=== PATIENT | female | born 1950 | race Caucasian/White ===

== ENCOUNTER 2017-06-24 20:10 | Emergency (ER) | payer MEDICARE, BC ==
[~2017-06-24 20:10] MED LIST: ABIL5TAB6 PO; ALPR1TAB3 PO; APIX5TAB PO; CYAN100025 SL; FENT1DIS35 T-DERMAL; FOLI5CAP PO; MECL-62 PO; MELO7.5; TEMA30CA PO
[2017-06-24 20:11] VITALS: BP 148/70; PULSE 72; RESP 16; TEMP 98.6; O2SAT 99
[2017-06-24] MEDS ORDERED: CYMB60CA PO (23:37)
[2017-06-24] MEDS ORDERED: ABIL10TA8 PO (23:37)
[2017-06-24] MEDS ORDERED: MECL-62 PO (23:37)
[2017-06-24] MEDS ORDERED: TEMA30CA PO (23:38)
[2017-06-24] MEDS ORDERED: FOLI400T PO (23:38)
[2017-06-24] MEDS ORDERED: OXYC15TA PO (23:39)
[2017-06-24] MEDS ORDERED: GABA300C5 PO (23:39)
[2017-06-24] MEDS ORDERED: MOBI7.5T PO (23:39)
[2017-06-24] MEDS ORDERED: COUM3TAB PO (23:39)
[2017-06-24] MEDS ORDERED: METO25TA3 PO (23:39)
[2017-06-24] MEDS ORDERED: SODIUM CHLORIDE 0.9% FLUSH 10 ML FLUSH IVF PRN (23:45)
--- NOTE | 2017-06-24 23:55 | PD ---
HPI Chief Complaint: General Weakness Time Seen by Provider: 23:28 Travel History International Travel<30 days: No Contact w/Intl Traveler<30days: No Traveled to known affect area: No History of Present Illness HPI 66-year-old female presents with note of difficulty ambulating since she fell on Wednesday. She fell out of the chair when she fell asleep. She hit her head but did not lose consciousness. She states she has pain to the area she hit her head into her neck. She states she has chronic neck pain and has a plate in her neck. She states that she gets around with a cane typically and has been doing but it's been getting harder. She denies any other concurrent complaints. Family member help supplement history some as patient is a poor historian. PFSH Past Medical History Arthritis: Yes Blood Disorders: No Anxiety: Yes Depression: Yes Cancer: No Cardiovascular Problems: Yes (A-FIB/CAD/CONGENITAL DEFECT) High Cholesterol: Yes Congestive Heart Failure: No Diabetes: No Endocrine: No Gastrointestinal Disorders: Yes (GERD RESOLVED) GERD: Yes Genitourinary: No Hepatitis: No Hiatal Hernia: No Hypertension: Yes Immune Disorder: No Implanted Vascular Access Dvce: Yes Musculoskeletal: Yes (ARTHRITIS, NECK HARDWARE) Neurologic: No Psychiatric: Yes (BI-POLAR/ANXIETY/DEPRESSION) Reproductive: No Respiratory: No Thyroid Disease: No ?: Not Menopausal: Yes Past Surgical History Body Medical Devices: LEFT ARM HARDWARE, CERVICAL HARDWARE Cardiac Surgery: Yes (ATRIAL HOLE REPAIR (1970)) Joint Replacement: Yes (JORDIN. HIPS) Neurologic Surgery: Yes (CERVICAL FUSION X 2) Pacemaker: No Other Surgery: Yes Social History Alcohol Use: Yes (occ) Tobacco Use: No Substance Use: No Allergies-Medications (Allergen,Severity, Reaction): Coded Allergies: diltiazem (Unverified Allergy, Unknown, 06/24/17) morphine (Unverified Allergy, Unknown, 06/24/17) diphenhydramine (Unverified Adverse Reaction, Severe, hyperactivity, 06/24) Reported Meds & Prescriptions Reported Meds & Active Scripts Active Reported Mobic (Meloxicam) 7.5 Mg Tab 7.5 Mg PO DAILY Metoprolol Tartrate 25 Mg Tab 25 Mg PO BID Gabapentin 300 Mg Cap 300 Mg PO BID Oxycodone (Oxycodone HCl) 15 Mg Tab 15 Mg PO Q4H PRN Coumadin (Warfarin) 3 Mg Tab 3 Mg PO DAILY Folic Acid 0.4 Mg Tab Unknown Dose PO DAILY Temazepam 30 Mg Cap 30 Mg PO HS PRN Meclizine (Meclizine HCl) 25 Mg Tab 25 Mg PO BID PRN Abilify (Aripiprazole) 10 Mg Tab 5 Mg PO DAILY Cymbalta DR (Duloxetine HCl) 60 Mg Capdr 60 Mg PO DAILY Alprazolam 1 Mg Tab 1 Mg PO Q8H PRN Review of Systems ROS Limitations: Poor Historian Physical Exam Exam Limitations: Poor Historian Narrative GENERAL: Well-nourished, well-developed patient. SKIN: Warm and dry. HEAD: Normocephalic and atraumatic. EYES: No injection or drainage. ENT: No nasal drainage noted. NECK: Supple, trachea midline. pain with ROM diffusely CARDIOVASCULAR: Regular rate and rhythm RESPIRATORY: no increased effort. No accessory muscle use. GASTROINTESTINAL: Abdomen soft, non-tender, nondistended. EXTREMITIES: No edema. BACK: Nontender without obvious deformity in midline. NEUROLOGICAL: Awake and alert. Mild generalized weakness of 4 out of 5 and sensory grossly within normal limits. Normal speech. Data Data Last Documented VS Vital Signs Date Time Temp Pulse Resp B/P (MAP) Pulse Ox O2 Delivery O2 Flow Rate FiO2 06/24/17 20:11 98.6 72 16 148/70 (96) 99 Room Air Orders Orders Basic Metabolic Panel (Bmp) (06/24/17 23:35) Complete Blood Count With Diff (06/24/17 23:35) Prothrombin Time / Inr (Pt) (06/24/17 23:35) Act Partial Throm Time (Ptt) (06/24/17 23:35) Urinalysis - C+S If Indicated (06/24/17 23:35) Chest, Single Ap (06/24/17 23:35) Ct Brain W/O Iv Contrast(Rout) (06/24/17 23:35) Ct Cerv Spine W/O Contrast (06/24/17 23:35) Iv Access Insert/Monitor (06/24/17 23:35) Ecg Monitoring (06/24/17 23:35) Oximetry (06/24/17 23:35) Sodium Chloride 0.9% Flush (Ns Flush) (06/24/17 23:45) Sodium Chlorid 0.9% 500 Ml Inj (Ns 500 M (06/25/17 01:00) Cath For Specimen (06/25/17 01:54) Ed Discharge Order (06/25/17 02:59) Labs Laboratory Tests Test 06/24/17 23:45 06/25/17 02:20 White Blood Count 6.1 TH/MM3 Red Blood Count 4.26 MIL/MM3 Hemoglobin 13.2 GM/DL Hematocrit 38.8 % Mean Corpuscular Volume 91.1 FL Mean Corpuscular Hemoglobin 30.9 PG Mean Corpuscular Hemoglobin Concent 33.9 % Red Cell Distribution Width 14.4 % Platelet Count 149 TH/MM3 Mean Platelet Volume 7.8 FL Neutrophils (%) (Auto) 49.8 % Lymphocytes (%) (Auto) 37.8 % Monocytes (%) (Auto) 9.8 % Eosinophils (%) (Auto) 1.9 % Basophils (%) (Auto) 0.7 % Neutrophils # (Auto) 3.0 TH/MM3 Lymphocytes # (Auto) 2.3 TH/MM3 Monocytes # (Auto) 0.6 TH/MM3 Eosinophils # (Auto) 0.1 TH/MM3 Basophils # (Auto) 0.0 TH/MM3 CBC Comment DIFF FINAL Differential Comment Prothrombin Time 10.3 SEC Prothromb Time International Ratio 1.0 RATIO Activated Partial Thromboplast Time 27.9 SEC Blood Urea Nitrogen 12 MG/DL Creatinine 0.79 MG/DL Random Glucose 84 MG/DL Calcium Level 9.2 MG/DL Sodium Level 133 MEQ/L Potassium Level 4.7 MEQ/L Chloride Level 100 MEQ/L Carbon Dioxide Level 25.9 MEQ/L Anion Gap 7 MEQ/L Estimat Glomerular Filtration Rate 73 ML/MIN Urine Color LIGHT-YELLOW Urine Turbidity CLEAR Urine pH 5.5 Urine Specific Wever 1.002 Urine Protein NEG mg/dL Urine Glucose (UA) NEG mg/dL Urine Ketones NEG mg/dL Urine Occult Blood NEG Urine Nitrite NEG Urine Bilirubin NEG Urine Urobilinogen LESS THAN 2.0 MG/DL Urine Leukocyte Esterase NEG Urine Squamous Epithelial Cells <1 /hpf Microscopic Urinalysis Comment CULT NOT INDICATED MDM Medical Decision Making Medical Screen Exam Complete: Yes Emergency Medical Condition: Yes Medical Record Reviewed: Yes (pmh confirmed) Interpretation(s) CBC & BMP Diagram 06/24/17 23:[address] imaging no acute traumatic findings ua no acute Differential Diagnosis uti, ich, fracture, electrolyte abnormality... Narrative Course will check labs, ua, imaging and reeval ED workup without emergent process, patient ambulated to bathroom with one person assist, at bedside, Patient denies any new complaints and states that they are feeling better. Patient happy with care, all questions answered. Patient knows that follow up is incumbent on them and to return to the emergency room immediately if new or worsening symptoms develop. Patient given strict return precautions, vitals reviewed and are normal, agrees to further workup as an outpatient and wanting to go home. Diagnosis Primary Impression: Fall Qualified Codes: W19.XXXA - Unspecified fall, initial encounter Patient Instructions: General Instructions Additional Instructions: return as needed, follow with primary this week, tylenol as needed Med/Other Pt SpecificInfo: No Change to Meds Disposition: 01 DISCHARGE HOME Condition: Stable Gunjan Mariano MD Jun 24, 2017 23:55
--- NOTE | 2017-06-25 00:02 | RADRPT ---
EXAM DATE/TIME: 06/24/2017 23:51 [facility] COMPARISON: No previous studies available for comparison. INDICATIONS : Pt fell out of chair one week ago. Unable to ambulate MEDICAL HISTORY : Hypertension. Gastroesophageal reflux disease. Hypercholesterolemia. A-fib SURGICAL HISTORY : Atrial hole repair, Left shoulder ENCOUNTER: Initial ACUITY: 1 week PAIN SCORE: 8/10 LOCATION: Bilateral chest FINDINGS: Portable AP view of the chest demonstrates a normal-sized cardiac silhouette. Patient is rotated and underinflated with atelectasis at the lung bases. No effusion, consolidation, or pneumothorax is iden tified. There is fullness to the left suprahilar region. Bones and soft tissues demonstrate no acute finding. There has been prior left shoulder arthroplasty. CONCLUSION: 1. Fullness of the left suprahilar region of uncertain chronicity. I currently do not have access to the patient's prior study from January 2012. Consider followup to confirm stability with good inspirator y formal PA and lateral views of the chest. 2. Otherwise, no acute finding is identified. Robby Shelton MD on June 24, 2017 at 23:59 Board Certified Radiologist. This report was verified electronically.
--- NOTE | 2017-06-25 00:24 | RADRPT ---
EXAM DATE/TIME: 06/24/2017 23:56 [facility] COMPARISON: No previous studies available for comparison. INDICATIONS : Trauma, fall. Unable to ambulate. RADIATION DOSE: 56.35 CTDIvol (mGy) MEDICAL HISTORY : None SURGICAL HISTORY : None. ENCOUNTER: Initial ACUITY: 1 week PAIN SCALE: 5/10 LOCATION: cranial TECHNIQUE: Multiple contiguous axial images were obtained of the head. Using automated exposure control and adj ustment of the mA and/or kV according to patient size, radiation dose was kept as low as reasonably a chievable to obtain optimal diagnostic quality images. DICOM format image data is available electro nically for review and comparison. FINDINGS: CEREBRUM: There is cerebral atrophy. Ventricles are normal. Mild periventricular white matter low-attenuation i s present and there is encephalomalacia in the right parietal region. No evidence of midline shift, mass lesion, hemorrhage or acute infarction. No extra-axial fluid collections are seen. POSTERIOR FOSSA: The cerebellum and brainstem demonstrate no acute finding. The 4th ventricle is midline. The cerebe llopontine angle is unremarkable. EXTRACRANIAL: Visualized sinuses are clear. SKULL: The calvaria is intact. No evidence of skull fracture. CONCLUSION: No acute intracranial abnormality is identified. There are chronic changes, as above. Robby Shelton MD on June 25, 2017 at 0:19 Board Certified Radiologist. This report was verified electronically.
--- NOTE | 2017-06-25 00:27 | RADRPT ---
EXAM DATE/TIME: 06/24/2017 23:57 [facility] COMPARISON: No previous studies available for comparison. INDICATIONS : Trauma, fall. Unable to ambulate. RADIATION DOSE: 25.64 CTDIvol (mGy) MEDICAL HISTORY : None SURGICAL HISTORY : Fusion, cervical. ENCOUNTER: Initial ACUITY: 1 week PAIN SCALE: 8/10 LOCATION: neck TECHNIQUE: Volumetric scanning of the cervical spine was performed. Multiplanar reconstructions in the sagittal, coronal and oblique axial planes were performed. Using automated exposure control and adjustment o f the mA and/or kV according to patient size, radiation dose was kept as low as reasonably achievable to obtain optimal diagnostic quality images. DICOM format image data is available electronically f or review and comparison. FINDINGS: There is osseous fusion between the C4-C6 levels. Anterior cervical plates are present at C3-C4 and C 6-C7. There are no findings to indicate hardware failure or loosening. Degenerative disc disease is p resent at C2-C3, C3-C4, and C6-C7 with endplate osteophytes. No anterolisthesis or retrolisthesis is present. The atlantoaxial relationship is within normal limits. There is no prevertebral soft tissue swelling present. No fracture or dislocation is identified. The visualized portions of the posterior fossa, paraspinous soft tissues, and upper lung zones demons trate no acute abnormality. The patient's necklace causes artifact. CONCLUSION: Prior cervical spine surgery and multilevel degenerative disc disease, as above. No acute cervical sp ine abnormality is identified. Robby Shelton MD on June 25, 2017 at 0:22 Board Certified Radiologist. This report was verified electronically.
[2017-06-25 00:48] LABS: BASOPHIL % 0.7 % (0.0-2.0); EOSINOPHIL # 0.1 TH/MM3 (0-0.4); EOSINOPHIL % 1.9 % (0.0-4.0); HEMATOCRIT 38.8 % (35.0-46.0); HEMO FLAGS DIFF FINAL; LYMPH % 37.8 % (9.0-44.0); LYMPHOCYTE # 2.3 TH/MM3 (1.0-4.8); MEAN CELL VOLUME 91.1 FL (80.0-100.0); MEAN CORPUSCULAR HEMOGLOBIN 30.9 PG (27.0-34.0); MEAN CORPUSCULAR HGB CONC 33.9 % (32.0-36.0); MONO % 9.8 % (0.0-8.0); NEUT % 49.8 % (16.0-70.0); PLATELET COUNT 149 TH/MM3 (150-450); RED BLOOD COUNT 4.26 MIL/MM3 (4.00-5.30); RED CELL DISTRIBUTION WIDTH 14.4 % (11.6-17.2); WHITE BLOOD COUNT 6.1 TH/MM3 (4.0-11.0)
[2017-06-25 00:56] LABS: APTT (PATIENT) 27.9 SEC (24.3-30.1); PROTHROMBIN TIME - PATIENT 10.3 SEC (9.8-11.6)
[2017-06-25] MEDS ORDERED: SODIUM CHLORID 0.9% 500 ML INJ 500 ML IV ONE (01:00)
[2017-06-25 01:05] LABS: BICARBONATE 25.9 MEQ/L (21.0-32.0); POTASSIUM 4.7 MEQ/L (3.5-5.1)
[2017-06-25 02:38] LABS: BLOOD, URINE NEG (NEG); GLUCOSE,URINE NEG (NEG); KETONE, URINE NEG (NEG); NITRITE,URINE NEG (NEG); PH, URINE 5.5 (5.0-8.5); SQUAMOUS EPITHELIAL CELL URINE <1 /hpf (0-5); URINE COLOR LIGHT-YELLOW (YELLW/STRAW)
[2017-06-25 02:42] LABS: COMMENT (UR) CULT NOT INDICATED; CULTURE IF INDICATED CULT NOT INDICATED
== END 2017-06-25 03:27 | disposition home or self-care (01) ==
LOC: NEPE 20:10
DX: R26.2 Difficulty in walking, not elsewhere classified (principal); R51 Headache; M54.2 Cervicalgia; I10 Essential (primary) hypertension; E78.00 Pure hypercholesterolemia, unspecified; Z87.39 Personal history of other diseases of the musculoskeletal system and connective tissue; Z86.59 Personal history of other mental and behavioral disorders; Z86.79 Personal history of other diseases of the circulatory system; W07.XXXA Fall from chair, initial encounter
CPT/HCPCS: 70450; 71010; 72125; 80048; 81001; 85025; 85610; 85730; 99285; J7040

== ENCOUNTER → 2017-10-11 | Outpatient (CLI) | payer MEDICARE, BC ==
[~2017-10-11] MED LIST changes: +ABIL10TA8 PO; +ABIL5TAB14 PO; -ABIL5TAB6 PO; +ALPR.5 PO; +COUM3TAB PO; -CYAN100025 SL; +CYMB60CA PO; -FENT1DIS35 T-DERMAL; +FOLI1TAB6 PO; +FOLI400T PO; -FOLI5CAP PO; +GABA300C5 PO; -MELO7.5; +METO25TA3 PO; +MOBI7.5T PO; +OMEP20TA93 PO; +OXYC15TA PO; +PONASOL EACH NARE
[2017-10-11 11:04] LABS: AUTOMATED NEUTROPHIL # 2.3 TH/MM3 (1.8-7.7); BASOPHIL % 0.7 % (0.0-2.0); EOSINOPHIL # 0.1 TH/MM3 (0-0.4); EOSINOPHIL % 2.9 % (0.0-4.0); HEMATOCRIT 39.1 % (35.0-46.0); HEMOGLOBIN 13.2 GM/DL (11.6-15.3); LYMPHOCYTE # 1.9 TH/MM3 (1.0-4.8); MEAN CELL VOLUME 87.1 FL (80.0-100.0); MEAN CORPUSCULAR HEMOGLOBIN 29.4 PG (27.0-34.0); MEAN CORPUSCULAR HGB CONC 33.7 % (32.0-36.0); MEAN PLATELET VOLUME 7.8 FL (7.0-11.0); MONO % 10.1 % (0.0-8.0); MONOCYTE # 0.5 TH/MM3 (0-0.9); NEUT % 47.3 % (16.0-70.0); PLATELET COUNT 119 TH/MM3 (150-450); RED BLOOD COUNT 4.49 MIL/MM3 (4.00-5.30); RED CELL DISTRIBUTION WIDTH 14.7 % (11.6-17.2); WHITE BLOOD COUNT 4.9 TH/MM3 (4.0-11.0)
[2017-10-11 11:05] LABS: BILIRUBIN, URINE NEG (NEG); BLOOD, URINE NEG (NEG); GLUCOSE,URINE NEG (NEG); KETONE, URINE NEG (NEG); NITRITE,URINE NEG (NEG); PH, URINE 5.5 (5.0-8.5); SQUAMOUS EPITHELIAL CELL URINE 1 /hpf (0-5); URINE COLOR LIGHT-YELLOW (YELLW/STRAW); URINE LEUKOCYTE ESTERASE NEG (NEG)
[2017-10-11 11:21] LABS: INTERNATIONAL NORMALIZED RATIO 1.1 RATIO; PROTHROMBIN TIME - PATIENT 10.7 SEC (9.8-11.6)
--- NOTE | 2017-10-11 12:05 | RADRPT ---
EXAM DATE/TIME: 10/11/2017 11:36 [facility] COMPARISON: CHEST SINGLE AP, June 24, 2017, 23:51. INDICATIONS : Evaluate for communicable diseases, pneumonia, or pneumothorax. MEDICAL HISTORY : Myocardial infarction. SURGICAL HISTORY : None. ENCOUNTER: Initial ACUITY: 1 day PAIN SCORE: 0/10 LOCATION: Bilateral chest FINDINGS: The heart is normal in size. There is mild blunting of the costophrenic sulcus on the right suggestin g minimal right basilar effusion. There are COPD changes. The visualized bony structures demonstrate previous left shoulder arthroplasty but are otherwise inta ct. There are degenerative changes in the thoracic spine. CONCLUSION: 1. COPD changes. 2. Minimal blunting of the costophrenic sulcus on the right possibly representing minimal effusion ve rsus scarring Richie Sparks MD on October 11, 2017 at 12:02 Board Certified Radiologist. This report was verified electronically.
[2017-10-11 12:09] LABS: BICARBONATE 28.6 MEQ/L (21.0-32.0); CALCIUM 9.1 MG/DL (8.5-10.1); CREATININE 0.78 MG/DL (0.50-1.00)
--- NOTE | 2017-10-18 12:51 | MH ---
cc: Ancelmo Mcfarlane MD DATE OF ADMISSION: 10/11/2017 She is scheduled to be admitted to be admitted to the hospital on 10/27/2017. ADMITTING DIAGNOSIS: Osteoarthritis of the right knee; chondromalacia, patella, right knee; effusion, right knee; pain, right knee; gait disturbance. HISTORY OF PRESENT ILLNESS: The patient is a 67-year-old white female who has experienced pain of her right knee of greater than 2 years' duration. She associated the onset of her symptoms following peripheral vascular surgery completed at the [facility] in [place] within the past 2 years and at that time was noting pain about both knees, for which she was seen by the undersigned physician in May 2016. At that time, her x-ray studies were without evidence of any acute bony abnormality. The patient was diagnosed as having transient synovitis, for which she declined an offer for an intraarticular steroid injection, as well as indicating she was unable to take antiinflammatory medication being on Eliquis as part of her cardiology management. She was prescribed Voltaren gel and followed on an outpatient basis thereafter. She remains symptomatic with pain about the knee area and subsequently underwent an MRI scan, the results of which identified osteoarthritic findings with severe lateral compartment chondromalacia and moderate focal central patellar chondromalacia. There was medial compartment chondromalacia. All of the above associated with a moderate sized joint effusion and degenerative changes involving the posterior horn of the lateral meniscus. The patient was continuing to note soreness about her right knee, although she had remained ambulatory during this interval of time. At that time, the patient was treated with an intraarticular steroid injection and thereafter continued to be monitored on an outpatient basis. Unfortunately, her symptoms persisted and she returned to the office in August of this year reporting ongoing pain that was becoming significantly more symptomatic and interfering with all ambulatory activities. The injection that she had previously received, unfortunately, did not provide her with any appreciable benefit. She was requiring use of a cane as a full-time ambulatory aid and describing considerable difficulty conforming to all weightbearing activities, which was beginning to influence her daily routine. She was having additional difficulties with simple tasks such as getting in and out of her automobile and was trying to conform to exercise activities under her own supervision indicating a degree of reluctance to undergo any current course of therapy intervention having been through such treatment in the past. At that time, she expressed her desire to proceed with a more definitive course of treatment that would afford her a more favorable long-term benefit. The involvement of total knee arthroplasty was outlined in detail with emphasis being made that the decision to proceed with surgery would be left entirely to the patient's discretion. She once again declined the offer for physical therapy referral indicating her preference to proceed with surgery as discussed. She underwent both medical and cardiac clearances and upon completion of same, returned to the office for further disposition requesting that surgery be scheduled. In compliance with her wishes, she is currently being admitted in order that the above be accomplished. PAST MEDICAL HISTORY, HOSPITALIZATIONS AND SURGERIES: Have included bilateral total hip arthroplasties, hemiarthroplasty of the left shoulder for a history of fracture, open heart surgery at 19 years of age for a history of a septal defect, subsequent stent insertion, cervical discectomy and fusion, carotid endarterectomy and medical management for pneumonia and gastrointestinal disorder. MEDICAL ILLNESSES: Include stress urinary incontinence, arthritis, bipolar disorder and sleep apnea, for which the patient utilizes CPAP. CURRENT MEDICATIONS: Cymbalta 60 mg twice daily, Abilify 5 mg daily, meclizine 25 mg twice daily, temazepam 30 mg at bedtime, folic acid daily, oxycodone 15 mg 4 times daily, gabapentin 300 mg twice daily, metoprolol 25 mg twice daily, 5 mg daily, Xanax 50 mg daily. She has taken Mobic 7.5 mg twice daily, a nasal emollient twice daily, omeprazole 20 mg daily, and Eliquis 5 mg daily. ALLERGIES: THE PATIENT INDICATES A DRUG ALLERGY TO BENADRYL, WHICH HAS CAUSED HYPERACTIVITY. SHE SAYS MORPHINE HAS BEEN ASSOCIATED WITH IRRATIONAL BEHAVIOR, BUT OXYCODONE HAS BEEN WELL TOLERATED. REVIEW OF SYSTEMS: She does wear glasses. No headache, seizure, or syncope. Occasional sinus congestion. There has been a history of epistaxis. No bleeding gums or dysphagia. Auditory acuity intact. No tinnitus. Denies cough, shortness of breath, upper respiratory infection and tuberculosis. There is a positive history of pneumonia, status post open heart surgery for congenital septal defect. No angina. Appetite good. Occasional constipation managed by [id number] products. No hepatitis, gallbladder disease, ulcers or hemorrhoids. No urinary tract infection, no kidney stones. Fracture of her left shoulder resulting in hemiarthroplasty, and psychiatric treatment for bipolar disorder. Remaining review of systems is unremarkable and noncontributory. FAMILY HISTORY: 18 years, 66 years of age, in good health. No children. FAMILY HISTORY: Positive for hypertension, diabetes, pancreatic cancer, heart disease, aneurysm and chronic musculoskeletal disorder. 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 She is on disability due to her bipolar disorder and arthritis. She completed a high school education with additional college credits. She admits to a [id number] use of tobacco in the past. Ethanol consumption on an occasional social basis. PHYSICAL EXAMINATION: VITAL SIGNS: Height 5 feet 5 inches, weight 149 pounds. GENERAL: An alert, oriented, and responsive 67-year-old white female who sits quietly upon the examination table with no obvious distress. HEAD, EARS, EYES, NOSE, AND THROAT: Pupils are equally round and reactive to light. Extraocular movements full. Sclerae are clear. External nares clear. External auditory canals clear. Dental intact. Mucous membranes pink and moist. Pharynx clear. NECK: Supple, active mobility without appreciable pain. Carotid pulse palpable bilaterally. Trachea midline. Thyroid without thyroid enlargement. LUNGS: Clear to auscultation and percussion. BACK: Bilateral CVA tenderness. No appreciable discomfort throughout the dorsolumbar spine. HEART: Regular rhythm with no murmur or gallop. ABDOMEN: Soft, mildly tender without rebound or guarding. Bowel sounds are present. PELVIC: Per primary care physician. EXTREMITIES: Right knee, no significant swelling or effusion, no discoloration. Lateral joint line tenderness without palpable deformity. Apprehension and compression sign negative. Limited and guarded mobility at the extreme of flexion without significant crepitation. No collateral ligamentous laxity. Abdias test and drawer sign negative. Pivot shift and Norma sign positive for lateral compartment pain. Straight leg raising unremarkable at 80 degrees. Satisfactory mobility of the right hip with no associated pain. Mild Antalgic gait. NEUROLOGIC: Cranial nerves 2 through 12 grossly intact. IMPRESSION: Osteoarthritis of the right knee; chondromalacia, patella, right knee; effusion, right knee; pain, right knee; gait disturbance. PLAN: Right total knee arthroplasty. The nature of the planned surgical procedure, the potential complications and risks associated, the expectations of surgery, and the consent form were thoroughly reviewed with the patient prior to admission to the hospital. Lyndsay has indicated her full understanding regarding all of the above and given consent to proceed with treatment as outlined. Medical evaluation and clearance for surgery will be completed by her primary care physician, Dr. Fabiola Silva. Cardiology clearance per Dr. Jacobs. Ancelmo Mcfarlane MD NBS/SB , 12:12 PM , 12:50 PM
== END ==
LOC: CPRE 09:12
PROVIDERS: ATTEND Orthopaedic Surgery
DX: Z01.810 Encounter for preprocedural cardiovascular examination (principal); Z01.811 Encounter for preprocedural respiratory examination; Z01.812 Encounter for preprocedural laboratory examination; Z01.818 Encounter for other preprocedural examination; Z79.01 Long term (current) use of anticoagulants; M17.11 Unilateral primary osteoarthritis, right knee
CPT/HCPCS: 36415; 71046; 80048; 81001; 85025; 85610

== ENCOUNTER 2017-10-27 05:35 | Inpatient (IN) | payer MEDICARE, BC ==
--- NOTE | 2017-10-18 12:51 | MH ---
cc: Ancelmo Mcfarlane MD DATE OF ADMISSION: 10/27/2017 She is scheduled to be admitted to be admitted to the hospital on 10/27/2017. ADMITTING DIAGNOSIS: Osteoarthritis of the right knee; chondromalacia, patella, right knee; effusion, right knee; pain, right knee; gait disturbance. HISTORY OF PRESENT ILLNESS: The patient is a 67-year-old white female who has experienced pain of her right knee of greater than 2 years' duration. She associated the onset of her symptoms following peripheral vascular surgery completed at the [facility] in [place] within the past 2 years and at that time was noting pain about both knees, for which she was seen by the undersigned physician in May 2016. At that time, her x-ray studies were without evidence of any acute bony abnormality. The patient was diagnosed as having transient synovitis, for which she declined an offer for an intraarticular steroid injection, as well as indicating she was unable to take antiinflammatory medication being on Eliquis as part of her cardiology management. She was prescribed Voltaren gel and followed on an outpatient basis thereafter. She remains symptomatic with pain about the knee area and subsequently underwent an MRI scan, the results of which identified osteoarthritic findings with severe lateral compartment chondromalacia and moderate focal central patellar chondromalacia. There was medial compartment chondromalacia. All of the above associated with a moderate sized joint effusion and degenerative changes involving the posterior horn of the lateral meniscus. The patient was continuing to note soreness about her right knee, although she had remained ambulatory during this interval of time. At that time, the patient was treated with an intraarticular steroid injection and thereafter continued to be monitored on an outpatient basis. Unfortunately, her symptoms persisted and she returned to the office in August of this year reporting ongoing pain that was becoming significantly more symptomatic and interfering with all ambulatory activities. The injection that she had previously received, unfortunately, did not provide her with any appreciable benefit. She was requiring use of a cane as a full-time ambulatory aid and describing considerable difficulty conforming to all weightbearing activities, which was beginning to influence her daily routine. She was having additional difficulties with simple tasks such as getting in and out of her automobile and was trying to conform to exercise activities under her own supervision indicating a degree of reluctance to undergo any current course of therapy intervention having been through such treatment in the past. At that time, she expressed her desire to proceed with a more definitive course of treatment that would afford her a more favorable long-term benefit. The involvement of total knee arthroplasty was outlined in detail with emphasis being made that the decision to proceed with surgery would be left entirely to the patient's discretion. She once again declined the offer for physical therapy referral indicating her preference to proceed with surgery as discussed. She underwent both medical and cardiac clearances and upon completion of same, returned to the office for further disposition requesting that surgery be scheduled. In compliance with her wishes, she is currently being admitted in order that the above be accomplished. PAST MEDICAL HISTORY, HOSPITALIZATIONS AND SURGERIES: Have included bilateral total hip arthroplasties, hemiarthroplasty of the left shoulder for a history of fracture, open heart surgery at 19 years of age for a history of a septal defect, subsequent stent insertion, cervical discectomy and fusion, carotid endarterectomy and medical management for pneumonia and gastrointestinal disorder. MEDICAL ILLNESSES: Include stress urinary incontinence, arthritis, bipolar disorder and sleep apnea, for which the patient utilizes CPAP. CURRENT MEDICATIONS: Cymbalta 60 mg twice daily, Abilify 5 mg daily, meclizine 25 mg twice daily, temazepam 30 mg at bedtime, folic acid daily, oxycodone 15 mg 4 times daily, gabapentin 300 mg twice daily, metoprolol 25 mg twice daily, 5 mg daily, Xanax 50 mg daily. She has taken Mobic 7.5 mg twice daily, a nasal emollient twice daily, omeprazole 20 mg daily, and Eliquis 5 mg daily. ALLERGIES: THE PATIENT INDICATES A DRUG ALLERGY TO BENADRYL, WHICH HAS CAUSED HYPERACTIVITY. SHE SAYS MORPHINE HAS BEEN ASSOCIATED WITH IRRATIONAL BEHAVIOR, BUT OXYCODONE HAS BEEN WELL TOLERATED. REVIEW OF SYSTEMS: She does wear glasses. No headache, seizure, or syncope. Occasional sinus congestion. There has been a history of epistaxis. No bleeding gums or dysphagia. Auditory acuity intact. No tinnitus. Denies cough, shortness of breath, upper respiratory infection and tuberculosis. There is a positive history of pneumonia, status post open heart surgery for congenital septal defect. No angina. Appetite good. Occasional constipation managed by [id number] products. No hepatitis, gallbladder disease, ulcers or hemorrhoids. No urinary tract infection, no kidney stones. Fracture of her left shoulder resulting in hemiarthroplasty, and psychiatric treatment for bipolar disorder. Remaining review of systems is unremarkable and noncontributory. FAMILY HISTORY: 18 years, 66 years of age, in good health. No children. FAMILY HISTORY: Positive for hypertension, diabetes, pancreatic cancer, heart disease, aneurysm and chronic musculoskeletal disorder. 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 She is on disability due to her bipolar disorder and arthritis. She completed a high school education with additional college credits. She admits to a [id number] use of tobacco in the past. Ethanol consumption on an occasional social basis. PHYSICAL EXAMINATION: VITAL SIGNS: Height 5 feet 5 inches, weight 149 pounds. GENERAL: An alert, oriented, and responsive 67-year-old white female who sits quietly upon the examination table with no obvious distress. HEAD, EARS, EYES, NOSE, AND THROAT: Pupils are equally round and reactive to light. Extraocular movements full. Sclerae are clear. External nares clear. External auditory canals clear. Dental intact. Mucous membranes pink and moist. Pharynx clear. NECK: Supple, active mobility without appreciable pain. Carotid pulse palpable bilaterally. Trachea midline. Thyroid without thyroid enlargement. LUNGS: Clear to auscultation and percussion. BACK: Bilateral CVA tenderness. No appreciable discomfort throughout the dorsolumbar spine. HEART: Regular rhythm with no murmur or gallop. ABDOMEN: Soft, mildly tender without rebound or guarding. Bowel sounds are present. PELVIC: Per primary care physician. EXTREMITIES: Right knee, no significant swelling or effusion, no discoloration. Lateral joint line tenderness without palpable deformity. Apprehension and compression sign negative. Limited and guarded mobility at the extreme of flexion without significant crepitation. No collateral ligamentous laxity. Abdias test and drawer sign negative. Pivot shift and Norma sign positive for lateral compartment pain. Straight leg raising unremarkable at 80 degrees. Satisfactory mobility of the right hip with no associated pain. Mild Antalgic gait. NEUROLOGIC: Cranial nerves 2 through 12 grossly intact. IMPRESSION: Osteoarthritis of the right knee; chondromalacia, patella, right knee; effusion, right knee; pain, right knee; gait disturbance. PLAN: Right total knee arthroplasty. The nature of the planned surgical procedure, the potential complications and risks associated, the expectations of surgery, and the consent form were thoroughly reviewed with the patient prior to admission to the hospital. Lyndsay has indicated her full understanding regarding all of the above and given consent to proceed with treatment as outlined. Medical evaluation and clearance for surgery will be completed by her primary care physician, Dr. Fabiola Silva. Cardiology clearance per Dr. Jacobs. Ancelmo Mcfarlane MD NBS/SB , 12:12 PM , 12:50 PM [email or web address]
[~2017-10-27] VITALS: Ht 165.1 cm; Wt 62.1 kg
[~2017-10-27 05:35] MED LIST changes: -ABIL10TA8 PO; -ALPR1TAB3 PO; -COUM3TAB PO; -FOLI400T PO
[2017-10-27] MEDS ORDERED: ceFAZolin INJ 1,000 MG VIAL ONE (06:11)
[2017-10-27] MEDS ORDERED: CHLORHEXIDINE GLUCONATE 2 % 1 PACK (2 CLOTHS) TOPICAL PRN (06:15)
[2017-10-27] MEDS ORDERED: POVIDONE IODINE 5% (ANTISEPSIS KIT) 4 APPLICATIONS EACH NARE PRN (06:15)
[2017-10-27] MEDS ORDERED: SODIUM CHLORID 0.9% 500 ML IV PRN (06:15)
[2017-10-27] MEDS ORDERED: CEFAZOLIN INJ 2,000 MG in SODIUM CHLORIDE 0.9% INJ 100 ML IV SCH (06:15)
[2017-10-27] MEDS ORDERED: POVIDONE IODINE 7.5% SCRUB 118 ML BOTTLE TOPICAL SCH (06:15)
[2017-10-27] MEDS ORDERED: LACTATED RINGER'S 1000 ML IV PRN (06:15)
[2017-10-27] MEDS ORDERED: METOPROLOL TARTRATE 25 MG TAB PO PRN (06:15)
[2017-10-27] MEDS ORDERED: ACETAMINOPHEN 1000 MG/100 ML 100 ML IV ONE (06:29)
[2017-10-27] MEDS ORDERED: FAMOTIDINE 20 MG/2 ML VIAL ONE (06:31)
[2017-10-27] MEDS ORDERED: FAT EMULSION 20% INJ 0 ML ONE (06:32)
[2017-10-27] MEDS ORDERED: MIDAZOLAM HCL 2 MG/2 ML VIAL ONE (06:33)
[2017-10-27] MEDS ORDERED: MIDAZOLAM HCL 2 MG/2 ML VIAL IV ONE (06:45)
[2017-10-27] MEDS ORDERED: FAMOTIDINE 20 MG/2 ML VIAL IV ONE (06:45)
[2017-10-27] MEDS ORDERED: TRANEXAMIC ACID 1 GM PRIOR TO PROCEDURE IV SCH ×2 (07:00)
[2017-10-27] MEDS ORDERED: HYDROmorphone HCL PF 2 MG/ML VIAL ONE (07:47)
[2017-10-27] MEDS ORDERED: DO NOT ADM ANY ANTICOAGULANT DRUGS PRN (09:16)
[2017-10-27] MEDS ORDERED: TRANEXAMIC ACID INJ 1,000 MG in SODIUM CHLORIDE 0.9% INJ 100 ML IV SCH (09:30)
[2017-10-27] MEDS ORDERED: ACETAMINOPHEN 325 MG TAB PO PRN (09:30)
[2017-10-27] MEDS ORDERED: Post-op Orders (for Pharmacy) XX ONE (09:30)
[2017-10-27] MEDS ORDERED: NALOXONE HCL 0.4 MG/ML AMP IV PUSH PRN (09:30)
[2017-10-27] MEDS ORDERED: ONDANSETRON HCL 4 MG/2 ML VIAL IVP PRN (09:30)
[2017-10-27] MEDS ORDERED: MISCELLANEOUS PHARMACY INFORMATION XX ONE (09:30)
[2017-10-27] MEDS ORDERED: DOCUSATE SODIUM 100 MG CAP PO PRN (09:30)
--- NOTE | 2017-10-27 09:31 | HHI.FF ---
Face to Face Verification Diagnosis: (1) DJD (degenerative joint disease) of knee Physical Therapy Gait training Knee: Total knee, Protocol: Right, Full weight bearing Right LE Weight Bearing: WB as tolerated Right LE Range of Motion: Active ROM Nursing Dressing Changes: Daily dressing change I have seen patient Lnydsay Nguyen on 10/27/17. My clinical findings support the need for the requested home health care services because: Limited ability to care for self High risk of falls I certify that my clinical findings support that this patient is homebound because: Post-op weakness Unsteady gait/balance Unsafe to leave home unassisted Ancelmo Mcfarlane MD Oct 27, 2017 09:31
[2017-10-27] MEDS ORDERED: *LABETALOL HCL 100 MG/20 ML VIAL PERIprocedural Use ONLY ONE (09:34)
[2017-10-27] MEDS ORDERED: TRANEXAMIC ACID 1 GM POST-OP IV SCH ×2 (10:00)
--- NOTE | 2017-10-27 10:03 | MP ---
cc: Ancelmo Mcfarlane MD DATE OF OPERATION: 10/27/2017 PREOPERATIVE DIAGNOSIS: Osteoarthritis of the right knee, chondromalacia patellae right knee, effusion right knee, pain right knee and gait disturbance. POSTOPERATIVE DIAGNOSIS: Osteoarthritis of the right knee, chondromalacia patellae right knee, effusion right knee, pain right knee and gait disturbance. PROCEDURE PERFORMED: Right total knee arthroplasty. SURGEON: Ancelmo Mcfarlane MD ANESTHESIA: General endotracheal. INDICATIONS: A 67-year-old white female with a 2 year history of right knee pain. She had previously undergone a vascular surgery assessment at the [facility] in [place] and at that time was complaining of bilateral knee pain for which she was later seen by the undersigned physician in May 2016. At that time, her x-ray studies were without evidence of any acute bony abnormality. The patient was diagnosed as having a transient synovitis and declined an offer for an intraarticular steroid injection. She also reported that she was unable to utilize anti-inflammatory medication being on Eliquis as part of cardiology management. She was prescribed Voltaren gel and followed on an outpatient basis thereafter. She subsequently underwent MRI scan evaluation, the results of which identified osteoarthritic findings with severe lateral compartment chondromalacia and moderate focal central patellar chondromalacia. There was additional involvement throughout the medial compartment. There was a moderate-sized effusion and degenerative changes involving the posterior horn of the lateral meniscus. The patient continued to experience soreness about her right knee, although she remained ambulatory during this interval of time. She did subsequently receive an intraarticular steroid injection as part of her ongoing management. Symptoms persisted. She returned to the office in August of this year reporting ongoing pain that was becoming significantly more symptomatic and interfering with all ambulatory activities. The injection that she had previously received unfortunately had not provided her with any appreciable benefit. She was currently requiring use of a cane as a full-time ambulatory aid and describing considerable difficulty as related to all weightbearing activities. She did express a desire to proceed with a more definitive course of treatment. The involvement of total knee arthroplasty was outlined in detail with emphasis being made that the decision to proceed with surgery would be left entirely to the patient's discretion. She once again declined the offer for physical therapy, indicating her preference to proceed with surgery as discussed. In compliance with her wishes, she was scheduled for admission at this time in order that the above be accomplished. FORMAT: Following induction of satisfactory general anesthesia by endotracheal intubation as completed per the Department of Anesthesia, a tourniquet was established around the proximal portion of the right lower extremity. The extremity proper was isolated with a U-drape, thereafter being prepped with Betadine solution and draped into a sterile field in the routine manner. Prior to initiation of the actual procedure, the standard timeout protocol was completed. All parameters were appropriately addressed and confirmed by operating room personnel. The extremity was elevated for approximately 1 minute and tourniquet thus inflated to 300 mmHg pressure. A sharp skin incision was initiated midline over the anterior aspect of the knee and developed through underlying subcutaneous tissue with hemostasis maintained by electrocautery. By deepening dissection, the anterior capsule was exposed, a medial capsulotomy completed and the patella subluxed in a lateral orientation. Examination of the joint space revealed significant degenerative changes, especially throughout the lateral compartment, extending into the patellofemoral articulation. The articular surface of the patella was resected with power saw. The 3 holed guide was utilized for establishing post-holes. The anterior cruciate ligament as well as medial and lateral meniscus structures were sharply excised. A centering hole was placed in the distal aspect of the femur, allowing positioning of the intramedullary guide. The distal femoral cutting jig was attached and the distal femur resected. AP measurement noted 62.5 mm sizing to be appropriate. The matching cutting block was positioned. Anterior, posterior and chamfer cuts were completed. The tibial plateau was thereafter subluxed in an anterior orientation allowing positioning of the extramedullary guide. The tibial plateau was resected and measured with 71 mm sizing determined to be satisfactory. A trial reduction was thereafter completed utilizing a 62.5 mm femoral component, a 71 mm tibial base with 10 mm bearing inserts trialed. The knee was readily brought to full extension. There was no laxity to varus or valgus stress at both 0 and 90 degrees flexed posture. Orientation was confirmed as being appropriate with measurement of the pelvic guide through the mechanical access of the knee. A trial reduction followed utilizing a 31 mm standard 3 post-patellar button. Once again good tracking was noted with no tendency towards subluxation. All trial components being removed, the remaining portion of the proximal tibia was prepared for insertion of the permanent component. An autogenous bone plug was inserted into the distal femoral guide hole and thereafter a preparation of Palacos bone cement was utilized in inserting knee components in a sequential fashion, which included a 71 mm fixed cruciate tibial plate to which a 10 mm Vanguard tibial bearing insert was secured with locking andrade. The 62.5 mm Vanguard femoral component was firmly seated onto the distal femur, excess cement being removed. The knee was brought to full extension and thereafter, the 31 mm, 3-post standard patellar button was attached and maintained in place with patellar clamp while cement hardening was completed. Final range of motion assessment noted good tracking and stability throughout the knee. Irrigation was repeated with hemostasis maintained. Autovac drain tubes were inserted through superior stab wounds. The capsule was repaired with 0 Vicryl suture. The remaining portion of the wound was closed in layers in the routine manner, skin margins being reapproximated with a running subcuticular 3-0 Vicryl suture over which Steri-Strips were applied. Xeroform gauze and a bulky dry sterile dressing placed. Tourniquet deflated after 42 minutes of tourniquet time, the extremity being supported in a canvas knee splint. Anesthesia was discontinued and the patient was thereafter transferred to a hospital stretcher and returned to the recovery room in satisfactory condition, having tolerated her operative procedure well. Estimated blood loss was approximately 500 mL as determined per Anesthesia. All implants were of the [employer] major account representative. MD JUDIE Gonzales/SB , 09:22 AM , 10:01 AM
[2017-10-27] MEDS ORDERED: *HYDROmorphone PF 1 MG VIAL PERIprocedural Use ONLY ONE (10:10)
[2017-10-27] MEDS ORDERED: *MEPERIDINE 25 MG INJ VIAL PERIprocedural Use ONLY ONE (10:18)
--- NOTE | 2017-10-27 10:28 | RADRPT ---
EXAM DATE/TIME: 10/27/2017 09:45 [facility] COMPARISON: No previous studies available for comparison. INDICATIONS : Post op right knee surgery. MEDICAL HISTORY : None. SURGICAL HISTORY : None. ENCOUNTER: Initial ACUITY: 1 day PAIN SCORE: 8/10 LOCATION: Right knee. FINDINGS: Postoperative total knee arthroplasty with intact hardware and anatomic alignment of the osseous stru ctures. 2 surgical drains are present in the suprapatellar region, multiple hemoclips in the posteri or distal thigh, and a soft tissue gas about the anterior knee and suprapatellar region. CONCLUSION: Expected postoperative findings status post total knee arthroplasty. Dario Thao MD on October 27, 2017 at 10:24 Board Certified Radiologist. This report was verified electronically.
[2017-10-27 12:00] VITALS: BP 165/81; PULSE 79; RESP 18; TEMP 97.6; O2SAT 99
[2017-10-27] MEDS ORDERED: GLYCOPYRROLATE 1 MG/5 ML SYRINGE IV PUSH ONE (12:00)
[2017-10-27] MEDS ORDERED: ACETAMINOPHEN/HYDROcodone 325 MG/5 MG TAB PO PRN (12:00)
[2017-10-27] MEDS ORDERED: KETOROLAC TROMETHAMINE 30 MG/ML (IVP) VIAL IV PUSH ONE (12:00)
[2017-10-27] MEDS ORDERED: LACTATED RINGER'S 1000 ML INJ 1,000 ML IV ONE (12:00)
[2017-10-27] MEDS ORDERED: LIDOCAINE HCL 1% PF 5 ML SYRINGE OTHER ONE (12:00)
[2017-10-27] MEDS ORDERED: NEOSTIGMINE 5 MG/5 ML SYRINGE IV PUSH ONE (12:00)
[2017-10-27] MEDS ORDERED: DEXAMETHASONE SOD PHOS 4 MG/ML VIAL IV ONE (12:00)
[2017-10-27] MEDS ORDERED: PROPOFOL 200 MG/20 ML AMP IV ONE (12:00)
[2017-10-27] MEDS ORDERED: ONDANSETRON HCL 4 MG/2 ML VIAL IV ONE (12:00)
[2017-10-27] MEDS: DEXT 5%-NACL 0.45% 1000 ML INJ 1,000 ML IV SCH ×2 (12:00→20:00)
[2017-10-27] MEDS ORDERED: ROCURONIUM INJ 50 MG/5 ML SYRINGE IV PUSH ONE (12:00)
--- NOTE | 2017-10-27 13:01 | PD.CONS ---
HPI Service [facility] Hospitalists Consult Requested By Dr. Ancelmo Mcfarlane Reason for Consult Medical Management. Primary Care Physician Non-Staff Diagnoses: History of Present Illness This is a pleasant 67 y/o female who was brought in by Orthopedic optimization specialist on 10/27/2017 Lo Mcfarlane with Diagnosis of OA of the right knee, chondromalacia patella right knee Effusion right knee, pain right knee and gait disturbance, status post Right Total knee Arthroplasty. a we know she has Anxiety disorder, Depression, Bipolar disorder, CAD, Atrial Fibrillation on chronic Anticoagulation with Eliquis, Hyperlipidemia, Hypertension, Hyperlipidemia. Seen in her bedroom, no complaint Review of Systems Constitutional: DENIES: Fever, Chills, Change in appetite Endocrine: DENIES: Heat/cold intolerance Eyes: DENIES: Blurred vision, Eye pain Musculoskeletal: COMPLAINS OF: Joint pain Except as stated in HPI: all other systems reviewed are Neg Past Family Social History Allergies: Coded Allergies: diltiazem (Unverified Allergy, Unknown, 06/24/17) morphine (Unverified Allergy, Unknown, 06/24/17) diphenhydramine (Unverified Adverse Reaction, Severe, hyperactivity, 06/24) Past Medical History OA Anxiety disorder Depression CAD Atrial Fibrillation Hyperlipidemia Hypertension Bipolar disorder chronic anticoagulation with Eliquis Past Surgical History Left arm hardware Cervical hardware Cervical fusion x 2 Bilateral Hip surgery ASD status post repair. Reported Medications Reported Meds & Active Scripts Active Reported Eliquis (Apixaban) 5 Mg Tab 5 Mg PO BID Omeprazole 20 Mg Tab 20 Mg PO DAILY Ponaris (Misc Natural Product Nasal) 1 Rama Rama 1 Applic EACH NARE BID Xanax (Alprazolam) 0.5 Mg Tab 0.5 Mg PO Q4H PRN Folic Acid 1 Mg Tablet 1 Tab PO DAILY Meclizine (Meclizine HCl) 25 Mg Tab 25 Mg PO TID PRN Abilify (Aripiprazole) 5 Mg Tablet 5 Tab PO DAILY Mobic (Meloxicam) 7.5 Mg Tab 7.5 Mg PO BID Metoprolol Tartrate 25 Mg Tab 25 Mg PO BID Gabapentin 300 Mg Cap 300 Mg PO TID Oxycodone (Oxycodone HCl) 15 Mg Tab 15 Mg PO Q4H PRN Temazepam 30 Mg Cap 30 Mg PO HS PRN Cymbalta DR (Duloxetine HCl) 60 Mg Capdr 60 Mg PO BID Active Ordered Medications Current Medications Medications (Trade) Dose Ordered Sig/Paulette Route Start Time Stop Time Status Last Admin Lactated Ringer's 1,000 ml @ 30 mls/hr Q24H PRN IV 10/27/17 06:15 10/30/17 06:14 10/27/17 06:30 Sodium Chloride 500 ml @ 30 mls/hr [id number] PRN IV 10/27/17 06:15 10/30/17 06:14 (Lopressor) 25 mg MUSICAL PERFORMER PRN PO 10/27/17 06:15 10/30/17 06:14 10/27/17 06:36 (Betadine 5% Antisepsis Kit) 1 applic MUSICAL PERFORMER PRN EACH NARE 10/27/17 06:15 10/30/17 06:14 10/27/17 06:30 (Chlorhexidine 2% Cloth) 3 pack MUSICAL PERFORMER PRN TOPICAL 10/27/17 06:15 10/30/17 06:14 10/27/17 05:50 (Betadine 7.5% Scrub) 1 applic ONCE TOPICAL 10/27/17 06:15 10/30/17 06:14 Cefazolin Sodium 2000 mg/Sodium Chloride 120 ml @ 240 mls/hr MUSICAL PERFORMER IV 10/27/17 06:15 10/27/17 18:00 Cefazolin Sodium 1000 mg/Sodium Chloride 100 ml @ 200 mls/hr Q6H IV 10/27/17 13:00 10/28/17 01:29 10/27/17 13:27 ([place] 5-325 Mg) 1 tab Q4H PRN PO 10/27/17 12:00 ([place] 5-325 Mg) 2 tab Q4H PRN PO 10/27/17 12:00 (Tylenol) 650 mg Q6H PRN PO 10/27/17 09:30 (Zofran Inj) 4 mg Q6H PRN IVP 10/27/17 09:30 (Colace) 100 mg BID PRN PO 10/27/17 09:30 (Ambien) 5 mg HS PRN PO 10/27/17 21:00 Dextrose/Sodium Chloride 1,000 ml @ 125 mls/hr Q8H IV 10/27/17 12:00 (Narcan Inj) 0.4 mg UNSCH PRN IV PUSH 10/27/17 09:30 (Dilaudid REELING MACHINE OPERATOR Inj) 6 mg UNSCH IV 10/27/17 09:30 10/29/17 09:29 10/27/17 13:23 REELING MACHINE OPERATOR Dosage Infused (Pha) 1 Q8HR .XX 10/27/17 14:00 10/29/17 13:59 (Eliquis) 5 mg ONCE ONCE PO 10/27/17 09:30 10/27/17 09:31 UNV Miscellaneous Information ALL NURSING DEPARTME... UNSCH PRN .XX 10/27/17 09:16 10/28/17 09:15 Family History Father with status post Stroke x 4 Mother with Dementia Social History Tobacco dependence 3 Cigars daily Physical Exam Vital Signs Vital Signs Date Time Temp Pulse Resp B/P (MAP) Pulse Ox O2 Delivery O2 Flow Rate FiO2 10/27/17 10:30 74 20 147/70 (95) 100 Nasal Cannula 2 10/27/17 10:15 74 20 199/94 (129) 100 Nasal Cannula 2 10/27/17 10:00 74 20 199/84 (122) 100 Nasal Cannula 2 10/27/17 09:45 73 20 195/82 (119) 100 Nasal Cannula 2 10/27/17 09:30 78 20 200/88 (125) 100 Nasal Cannula 2 10/27/17 09:17 97.7 87 20 181/94 (123) 100 Nasal Cannula 2 10/27/17 06:21 100 Nasal Cannula 2 Physical Exam GENERAL: Well-developed patient in no acute distress. SKIN: Warm and dry. HEAD: Normocephalic and atraumatic. EYES: No injection or drainage. ENT: No nasal drainage noted. NECK: Supple, trachea midline. pain with ROM diffusely CARDIOVASCULAR: Regular rate and rhythm RESPIRATORY: no increased effort. No accessory muscle use. GASTROINTESTINAL: Abdomen soft, non-tender, nondistended. EXTREMITIES: Orthotics on Right leg with Hemovac in place BACK: Nontender without obvious deformity in midline. NEUROLOGICAL: Awake and alert. No focal deficits. Imaging Last Impressions Knee X-Ray 10/27/17 09 Signed Impressions: Service Date/Time: Friday, October 27, 2017 09:45 - CONCLUSION: Expected postoperative findings status post total knee arthroplasty. Dario Thao MD Assessment and Plan Assessment and Plan 1. Severe Osteoarthritis of the Right knee status post Right total knee arthroplasty 2. Anxiety disorder/Depression/Bipolar disorder to continue Home medicines, patient asking for her Alprazolam started PRN 3. CAD/Atrial Fibrillation at this time in sinus rhythm continue present care continue Glory 4. Hypertension to continue Beta Blockers, controlled 5. Tobacco dependence will give her Bronchodilator, Mucolytic and incentive spirometry while in house. 6. Obstructive sleep apnea she has her own CPAP machine asked for RT for management. DVT prophylaxis with Gl[employer] Contracting Officer PT Code Status Full Code Discussed Condition With patient and nurse. Jorge Yuan MD Oct 27, 2017 13:01
[2017-10-27] MEDS: HYDROmorphone HCL PCA 6 MG/30 ML IV SCH ×2 (13:23→22:06)
[2017-10-27] MEDS: PCA - TOTAL MG DILAUDID DELIVERED PER SHIFT SCH ×2 (14:00→21:56)
[2017-10-27] MEDS: APIXABAN 5 MG TABLET PO SCH (15:00)
[2017-10-27 16:32] VITALS: BP 149/79; PULSE 82; RESP 17; TEMP 98; O2SAT 97
[2017-10-27] MEDS: ALPRAZolam 0.5 MG TAB PO PRN ×2 (16:34→21:56)
[2017-10-27 20:00] VITALS: BP 162/74; PULSE 87; RESP 17; TEMP 98.3; O2SAT 93
[2017-10-27] MEDS: RESP: IPRATROPIUM 0.5 MG/2.5 ML NEB NEB SCH ×2 (20:11→23:11)
[2017-10-27 20:16] VITALS: O2SAT 97
[2017-10-27] MEDS ORDERED: ZOLPIDEM TARTRATE 5 MG TAB PO PRN (21:00)
[2017-10-27] MEDS: guaiFENesin E.R. 600 MG TAB PO SCH (21:00)
[2017-10-27] MEDS ORDERED: MECLIZINE HCL 25 MG TAB PO PRN (23:00)
[2017-10-27] MEDS ORDERED: ALPRAZolam 0.5 MG TAB PO PRN (23:00)
[2017-10-27] MEDS: DULoxetine HCl DR 60 MG CAP PO SCH (23:53)
[2017-10-27] MEDS: METOPROLOL TARTRATE 25 MG TAB PO SCH (23:53)
[2017-10-28] VITALS (8 sets, daily range): BP systolic 115–161; BP diastolic 57–84; PULSE 73–92; RESP 14–20; TEMP 97.4–98.8; O2SAT 92–96
[2017-10-28] MEDS: DEXT 5%-NACL 0.45% 1000 ML INJ 1,000 ML IV SCH (00:37)
[2017-10-28 06:00] LABS: HEMATOCRIT 26.2 % (35.0-46.0)
[2017-10-28] MEDS: HYDROmorphone HCL PCA 6 MG/30 ML IV SCH ×2 (06:11→16:30)
[2017-10-28] MEDS ORDERED: HYDR-3516 PO (06:11)
[2017-10-28] MEDS: PCA - TOTAL MG DILAUDID DELIVERED PER SHIFT SCH ×3 (06:12→22:00)
[2017-10-28] MEDS ORDERED: WALKER WHEELS/F1 MIS (06:13)
[2017-10-28] MEDS: RESP: IPRATROPIUM 0.5 MG/2.5 ML NEB NEB SCH ×4 (07:59→19:07)
[2017-10-28] MEDS: ARIPiprazole 5 MG TAB PO SCH (08:29)
[2017-10-28] MEDS: DULoxetine HCl DR 60 MG CAP PO SCH ×2 (08:29→20:24)
[2017-10-28] MEDS: APIXABAN 5 MG TABLET PO SCH (08:29)
[2017-10-28] MEDS: METOPROLOL TARTRATE 25 MG TAB PO SCH ×2 (08:30→20:24)
[2017-10-28] MEDS: GABAPENTIN 300 MG CAP PO SCH ×3 (08:30→17:15)
[2017-10-28] MEDS: PANTOPRAZOLE SOD 20 MG DELAYED RELEASE TAB PO SCH (08:30)
[2017-10-28] MEDS: guaiFENesin E.R. 600 MG TAB PO SCH ×2 (08:30→20:24)
[2017-10-28] MEDS: POLYETHYLENE GLYCOL 17 GM PKG PO SCH ×2 (08:34→20:24)
[2017-10-28] MEDS: ALPRAZolam 0.5 MG TAB PO PRN ×2 (11:40→17:18)
--- NOTE | 2017-10-28 18:59 | HHI.PR ---
Subjective Remarks Denies cp/sob. States has some pain in right knee. Denies fevers or chills. Objective Vitals Vital Signs Date Time Temp Pulse Resp B/P (MAP) Pulse Ox O2 Delivery O2 Flow Rate FiO2 10/28/17 17:00 18 10/28/17 16:30 18 10/28/17 16:05 97.8 78 17 152/62 (92) 96 10/28/17 15:11 92 21 10/28/17 14:00 18 10/28/17 12:00 98.1 73 18 153/72 (99) 92 10/28/17 08:00 97.7 76 18 145/70 (95) 95 10/28/17 04:05 97.4 92 17 161/84 (109) 96 10/28/17 00:00 98.8 87 20 148/84 (105) 95 10/27/17 20:16 97 21 10/27/17 20:00 98.3 87 17 162/74 (103) 93 I/O 10/27/17 10/27/17 10/27/17 10/28/17 10/28/17 10/28/17 07:00 15:00 23:00 07:00 15:00 23:00 Intake Total 2710 ml 889 ml 240 ml 700 ml Output Total 500 ml 100 ml 160 ml 95 ml Balance 2210 ml 789 ml 240 ml 540 ml -95 ml Intake Oral 500 ml 240 ml 600 ml IV Total 210 ml 889 ml 100 ml Other 2000 ml Output Drainage Total 100 ml 160 ml 95 ml Estimated Blood Loss 500 ml # Voids 1 3 # Bowel Movements 0 0 Result Diagram: 10/28/17 0456 Imaging Last Impressions Knee X-Ray 10/27/17 0924 Signed Impressions: Service Date/Time: Friday, October 27, 2017 09:45 - CONCLUSION: Expected postoperative findings status post total knee arthroplasty. Dario Thao MD Objective Remarks AAox3 Full face bipap in place Clear lungs BL [id number] abdomen soft, nt, nd no edema in extremities right leg with dressing C/D/I. Procedures Right total knee arthroplasty. Medications and IVs Current Medications Medications (Trade) Dose Ordered Sig/Paulette Route Start Time Stop Time Status Last Admin Lactated Ringer's 1,000 ml @ 30 mls/hr Q24H PRN IV 10/27/17 06:15 10/30/17 06:14 10/27/17 06:30 Sodium Chloride 500 ml @ 30 mls/hr [id number] PRN IV 10/27/17 06:15 10/30/17 06:14 (Lopressor) 25 mg CARDIOVASCULAR PHYSICIAN ASSISTANT PRN PO 10/27/17 06:15 10/30/17 06:14 10/27/17 06:36 (Betadine 5% Antisepsis Kit) 1 applic CARDIOVASCULAR PHYSICIAN ASSISTANT PRN EACH NARE 10/27/17 06:15 10/30/17 06:14 10/27/17 06:30 (Chlorhexidine 2% Cloth) 3 pack CARDIOVASCULAR PHYSICIAN ASSISTANT PRN TOPICAL 10/27/17 06:15 10/30/17 06:14 10/27/17 05:50 (Betadine 7.5% Scrub) 1 applic ONCE TOPICAL 10/27/17 06:15 10/30/17 06:14 ([place] 5-325 Mg) 1 tab Q4H PRN PO 10/27/17 12:00 ([place] 5-325 Mg) 2 tab Q4H PRN PO 10/27/17 12:00 (Tylenol) 650 mg Q6H PRN PO 10/27/17 09:30 (Zofran Inj) 4 mg Q6H PRN IVP 10/27/17 09:30 (Colace) 100 mg BID PRN PO 10/27/17 09:30 (Ambien) 5 mg HS PRN PO 10/27/17 21:00 10/27/17 21:56 Dextrose/Sodium Chloride 1,000 ml @ 125 mls/hr Q8H IV 10/27/17 12:00 10/27/17 20:00 (Narcan Inj) 0.4 mg UNSCH PRN IV PUSH 10/27/17 09:30 (Dilaudid CLINICAL SAFETY SPECIALIST Inj) 6 mg UNSCH IV 10/27/17 09:30 10/29/17 09:29 10/28/17 16:30 CLINICAL SAFETY SPECIALIST Dosage Infused (Pha) 1 Q8HR .XX 10/27/17 14:00 10/29/17 13:59 10/28/17 14:00 (Eliquis) 5 mg DAILY PO 10/27/17 15:00 (Xanax) 0.5 mg Q6H PRN PO 10/27/17 15:45 10/28/17 17:18 (Mucinex Er) 600 mg BID PO 10/27/17 21:00 10/28/17 08:30 (Atrovent Neb) 0.5 mg Q4HR NEB NEB 10/27/17 16:00 10/28/17 15:11 (Xanax) 0.5 mg Q4H PRN PO 10/27/17 23:00 (Abilify) 25 mg DAILY PO 10/28/17 09:00 10/28/17 08:29 (Cymbalta Dr) 60 mg BID PO 10/27/17 23:00 10/28/17 08:29 (Neurontin) 300 mg TID PO 10/28/17 09:00 10/28/17 17:15 (Antivert) 25 mg TID PRN PO 10/27/17 23:00 (Lopressor) 25 mg BID PO 10/27/17 23:00 10/28/17 08:30 (Protonix) 20 mg DAILY PO 10/28/17 09:00 10/28/17 08:30 (Miralax) 17 gm BID PO 10/28/17 09:00 10/28/17 08:34 A/P Problem List: (1) DJD (degenerative joint disease) of knee ICD Code: M17.10 - Unilateral primary osteoarthritis, unspecified knee Plan: Status post right total knee arthroplasty. Continue pain control. The patient currently on morphine CLINICAL SAFETY SPECIALIST. Continue MiraLAX 17 minutes p.o. twice daily to prevent constipation. (2) HTN (hypertension) ICD Code: I10 - Essential (primary) hypertension Plan: Patient's blood pressure is elevated into the systolics 150-160s. Continue home antihypertensive medications. The patient is currently on metoprolol tartrate 25 mg p.o. twice daily. Blood pressure elevated likely secondary to pain. Continue pain control. We will add clonidine 0.1 mg p.o. every 8 hours as needed for systolic blood pressure more than 160. (3) DEREK (obstructive sleep apnea) ICD Code: G47.33 - Obstructive sleep apnea (adult) (pediatric) Plan: On BiPAP. (4) Hyperlipidemia ICD Code: E78.5 - Hyperlipidemia, unspecified Plan: Currently on a statin. Check fasting lipid profile. (5) Atrial fibrillation ICD Code: I48.91 - Unspecified atrial fibrillation Plan: Placed on telemetry. Apixaban on hold. Resume as per orthopedic surgery. (6) Bipolar disorder ICD Code: F31.9 - Bipolar disorder, unspecified Plan: Seems to be stable. Continue Cymbalta, Abilify, Xanax. Assessment and Plan GI prophylaxis: PPI. DVT prophylaxis: SCDs, chemoprophylaxis as per orthopedic surgery. Discharge Planning Discharge as per primary team. Problem Qualifiers (1) DJD (degenerative joint disease) of knee: Qualified Codes: M17.11 - Unilateral primary osteoarthritis, right knee (2) HTN (hypertension): Qualified Codes: I10 - Essential (primary) hypertension (3) Hyperlipidemia: Qualified Codes: E78.5 - Hyperlipidemia, unspecified (4) Bipolar disorder: Qualified Codes: F31.9 - Bipolar disorder, unspecified Juice Arriaga MD Oct 28, 2017 18:59
[2017-10-28] MEDS ORDERED: cloNIDine HCL 0.1 MG TAB PO PRN (20:00)
[2017-10-29] VITALS (7 sets, daily range): BP systolic 103–127; BP diastolic 16–74; PULSE 67–94; RESP 16–18; TEMP 97.4–98.6; O2SAT 93–95
[2017-10-29] MEDS: RESP: IPRATROPIUM 0.5 MG/2.5 ML NEB NEB SCH ×4 (00:03→12:24)
[2017-10-29] MEDS: ACETAMINOPHEN/HYDROcodone 325 MG/5 MG TAB PO PRN ×4 (00:39→14:40)
[2017-10-29] MEDS: DEXT 5%-NACL 0.45% 1000 ML INJ 1,000 ML IV SCH ×2 (04:00→10:54)
[2017-10-29] MEDS: PCA - TOTAL MG DILAUDID DELIVERED PER SHIFT SCH (05:27)
[2017-10-29 05:41] LABS: HEMATOCRIT 24.6 % (35.0-46.0); HEMOGLOBIN 8.4 GM/DL (11.6-15.3); MEAN CELL VOLUME 87.2 FL (80.0-100.0); MEAN CORPUSCULAR HEMOGLOBIN 29.8 PG (27.0-34.0); MEAN CORPUSCULAR HGB CONC 34.1 % (32.0-36.0); MEAN PLATELET VOLUME 7.6 FL (7.0-11.0); PLATELET COUNT 128 TH/MM3 (150-450); RED BLOOD COUNT 2.82 MIL/MM3 (4.00-5.30); RED CELL DISTRIBUTION WIDTH 15.6 % (11.6-17.2); WHITE BLOOD COUNT 7.7 TH/MM3 (4.0-11.0)
[2017-10-29 06:03] LABS: BICARBONATE 27.7 MEQ/L (21.0-32.0); CALCIUM 8.4 MG/DL (8.5-10.1); CREATININE 0.71 MG/DL (0.50-1.00)
[2017-10-29 06:08] LABS: CHOLESTEROL/ HDL RATIO 3.03 RATIO; HDL CHOLESTEROL 36.2 MG/DL (40.0-60.0)
--- NOTE | 2017-10-29 06:49 | MD ---
cc: Ancelmo Mcfarlane MD, Tina MD Bartholomew, Beth A MD DATE OF DISCHARGE: 10/29/2017 ADMITTING DIAGNOSIS: Osteoarthritis, right knee, chondromalacia patella right knee, effusion right knee, pain right knee and gait disturbance. DISCHARGE DIAGNOSIS: Osteoarthritis, right knee, chondromalacia patella right knee, effusion right knee, pain right knee and gait disturbance. HISTORY OF PRESENT ILLNESS: This is a 67-year-old white female with right knee pain of greater than 2 years duration associated with the onset of her symptoms following peripheral vascular surgery completed at the [facility] in [place] within the past 2 years. At that time, she was experiencing pain in both knees for which she was seen by the undersigned physician in 05/2016. Her x-ray studies were initially without evidence of acute bony abnormality. The patient was diagnosed as having transient synovitis for which she declined an offer for an intraarticular steroid injection and reported being unable to utilize anti-inflammatory medication being on Eliquis for a history of cardiology management. She was prescribed Voltaren gel and followed on an outpatient basis. She remains symptomatic with pain about the knee area and subsequently underwent an MRI scan, the results of which identified osteoarthritic findings with severe lateral compartment chondromalacia and moderate focal central patellar chondromalacia. The medial compartment was involved all associated with a moderate sized joint effusion and degenerative changes involving the posterior horn of the lateral meniscus. The patient continued to note soreness about her right knee, although she remained ambulatory during this interval of time. She did receive an intraarticular steroid injection and continue to be monitored on an outpatient basis. Her symptoms persisted and she returned to the office in August of this year reporting ongoing pain becoming significantly more symptomatic and interfering with all ambulatory activities. The injection that she had previously received, unfortunately did not provide her with any appreciable benefit. She was requiring use of a cane as a full-time ambulatory aid and describes considerable difficulty conforming to all weightbearing activities, which was beginning to influence her daily routine. She was having additional difficulties with simple tasks such as getting in and out of her automobile and trying to conform to exercise activities under her own supervision indicating reluctance to undergo any current course of therapy intervention having been through such treatment in the past. She expressed her desire to proceed with a more definitive course of treatment that would afford her a more favorable long-term benefit. The involvement of total knee arthroplasty was outlined in detail with emphasis being made that the decision to proceed with surgery would be left entirely to the patient's discretion. Once again, the patient declined an offer for additional therapy intervention indicating her preference to proceed with surgery as discussed. She completed both medical and cardiac clearances and upon completion of same, returned to the office requesting to proceed with operative intervention as noted above. In compliance with her wishes, she was scheduled for admission at this time in order that the above be accomplished. The physical examination at the time of admission revealed no significant swelling or effusion about the right knee. There was lateral joint line tenderness without palpable deformity. Apprehension and compression sign were negative. Limited and guarded mobility at the extreme of flexion without significant crepitation. No collateral ligamentous laxity. Abdias test and drawer sign negative. Pivot shift and Norma sign positive for lateral compartment pain. Straight leg raising unremarkable at 80 degrees. Satisfactory mobility of the right hip with no associated pain. Mild antalgic gait. HOSPITAL COURSE: Prior to admission to the hospital, the patient had undergone medical evaluation and clearance for surgery as completed by her primary care physician, Dr. Fabiola Palmer and cardiology clearance per Dr. Jacobs. The patient was taken to the operating room on 10/2017 and on that date underwent a right total knee arthroplasty completed in an uncomplicated manner. She was noted to have tolerated her operative procedure well and her postoperative course stable thereafter. Hemoglobin and hematocrit assessment postoperatively was 9 and 26.2 respectively. The patient was progressively mobilized under the guidance of physical therapy being permitted weightbearing to tolerance about the right lower extremity. Followup examination of her surgical wound noted to be intact, healing favorably with no evidence of infection. Medical followup per the hospitalist service. DVT prophylaxis initiated. Lead Sustainability Specialist consulted to assist with discharge planning. The patient had indicated her desire to be discharged home and continue her rehabilitation on an outpatient basis. Plans were finalized in this regard and pending medical clearance, she was scheduled for discharge on the second postoperative day, at which time she was noted to be making favorable progress with regard to her initial rehabilitation program. She was scheduled to be seen in office followup in approximately 4 weeks. CONDITION AT THE TIME OF DISCHARGE: Stable. PROGNOSIS: Favorable. DISCHARGE MEDICATIONS: Included hydrocodone 5/325 #40. The patient was also to continue with Eliquis that she had been taking preoperatively. MD JUDIE Gonzales/MICHELLE , 06:20 AM , 06:48 AM
[2017-10-29] MEDS: METOPROLOL TARTRATE 25 MG TAB PO SCH (10:15)
[2017-10-29] MEDS: ARIPiprazole 5 MG TAB PO SCH (10:16)
[2017-10-29] MEDS: DULoxetine HCl DR 60 MG CAP PO SCH (10:16)
[2017-10-29] MEDS: guaiFENesin E.R. 600 MG TAB PO SCH (10:16)
[2017-10-29] MEDS: PANTOPRAZOLE SOD 20 MG DELAYED RELEASE TAB PO SCH (10:16)
[2017-10-29] MEDS: GABAPENTIN 300 MG CAP PO SCH ×2 (10:16→12:01)
[2017-10-29] MEDS: POLYETHYLENE GLYCOL 17 GM PKG PO SCH (10:16)
[2017-10-29] MEDS: APIXABAN 5 MG TABLET PO SCH (10:16)
[2017-10-29] MEDS ORDERED: MAGNESIUM HYDROXIDE SUSP 30 ML CUP PO ONE (12:00)
[2017-10-29] MEDS ORDERED: BISACODYL 10 MG SUPP RECTAL ONE ×2 (12:00→14:00)
--- NOTE | 2017-10-29 12:01 | HHI.PR ---
Subjective Remarks patient has some pain in right knee which is controlled Denies cp/sob Afebrile Objective Vitals Vital Signs Date Time Temp Pulse Resp B/P (MAP) Pulse Ox O2 Delivery O2 Flow Rate FiO2 10/29/17 09:14 94 10/29/17 08:00 98.6 69 16 103/66 (78) 93 10/29/17 04:20 97.8 73 17 120/58 (78) 95 10/29/17 04:10 70 10/29/17 00:05 97.9 68 18 107/74 (85) 94 10/29/17 00:00 69 10/28/17 22:00 16 10/28/17 20:10 80 10/28/17 20:00 97.9 82 14 115/57 (76) 92 10/28/17 17:00 18 10/28/17 16:30 18 10/28/17 16:05 97.8 78 17 152/62 (92) 96 10/28/17 15:11 92 21 10/28/17 14:00 18 10/28/17 12:00 98.1 73 18 153/72 (99) 92 I/O 10/28/17 10/28/17 10/28/17 10/29/17 10/29/17 10/29/17 07:00 15:00 23:00 07:00 15:00 23:00 Intake Total 240 ml 700 ml 480 ml Output Total 160 ml 125 ml Balance 240 ml 540 ml -125 ml 480 ml Intake Oral 240 ml 600 ml 480 ml IV Total 100 ml Output Drainage Total 160 ml 125 ml # Voids 1 3 1 # Bowel Movements 0 0 0 Result Diagram: 10/29/1751210/29/17512 Imaging Last Impressions Knee X-Ray 10/27/17923 Signed Impressions: Service Date/Time: Friday, October 27, 2017 09:45 - CONCLUSION: Expected postoperative findings status post total knee arthroplasty. Dario Thao MD Objective Remarks AAox3 Full face bipap in place Clear lungs BL [id number] abdomen soft, nt, nd no edema in extremities right leg with dressing C/D/I. Procedures Right total knee arthroplasty. Medications and IVs Current Medications Medications (Trade) Dose Ordered Sig/Paulette Route Start Time Stop Time Status Last Admin Lactated Ringer's 1,000 ml @ 30 mls/hr Q24H PRN IV 10/27/17 06:15 10/30/17 06:14 10/27/17 06:30 Sodium Chloride 500 ml @ 30 mls/hr [id number] PRN IV 10/27/17 06:15 10/30/17 06:14 (Lopressor) [address] ATT[address]ANT PRN PO 10/27/17 06:15 10/30/17 06:14 10/27/17 06:36 (Betadine 5% Antisepsis Kit) [address] ATTENDANT PRN EACH NARE 10/27/17 06:15 10/30/17 06:14 10/27/17 06:30 (Chlorhexidine 2% Cloth) [address] ATTENDANT PRN TOPICAL 10/27/17 06:15 10/30/17 06:14 10/27/17 05:50 (Betadine 7.5% Scrub) 1 applic ONCE TOPICAL 10/27/17 06:15 10/30/17 06:14 ([place] 5-325 Mg) 1 tab Q4H PRN PO 10/27/17 12:00 ([place] 5-325 Mg) 2 tab Q4H PRN PO 10/27/17 12:00 10/29/17 10:15 (Tylenol) 650 mg Q6H PRN PO 10/27/17 09:30 (Zofran Inj) 4 mg Q6H PRN IVP 10/27/17 09:30 (Colace) 100 mg BID PRN PO 10/27/17 09:30 (Ambien) 5 mg HS PRN PO 10/27/17 21:00 10/27/17 21:56 Dextrose/Sodium Chloride 1,000 ml @ 125 mls/hr Q8H IV 10/27/17 12:00 10/27/17 20:00 (Narcan Inj) 0.4 mg UNSCH PRN IV PUSH 10/27/17 09:30 SWEET PICKLED FRUIT MAKER Dosage Infused (Pha) 1 Q8HR .XX 10/27/17 14:00 10/29/17 13:59 10/29/17 05:27 (Eliquis) 5 mg DAILY PO 10/27/17 15:00 10/29/17 10:16 (Xanax) 0.5 mg Q6H PRN PO 10/27/17 15:45 10/28/17 17:18 (Mucinex Er) 600 mg BID PO 10/27/17 21:00 10/29/17 10:16 (Atrovent Neb) 0.5 mg Q4HR NEB NEB 10/27/17 16:00 10/29/17 09:12 (Xanax) 0.5 mg Q4H PRN PO 10/27/17 23:00 (Abilify) 25 mg DAILY PO 10/28/17 09:00 10/29/17 10:16 (Cymbalta Dr) 60 mg BID PO 10/27/17 23:00 10/29/17 10:16 (Neurontin) 300 mg TID PO 10/28/17 09:00 10/29/17 10:16 (Antivert) 25 mg TID PRN PO 10/27/17 23:00 (Lopressor) 25 mg BID PO 10/27/17 23:00 10/29/17 10:15 (Protonix) 20 mg DAILY PO 10/28/17 09:00 10/29/17 10:16 (Miralax) 17 gm BID PO 10/28/17 09:00 10/29/17 10:16 (Catapres) 0.1 mg Q6H PRN PO 10/28/17 20:00 (Dulcolax Supp) 10 mg STAT ONCE RECTAL 10/29/17 12:00 10/29/17 12:01 (Milk Of Magnesia Liq) 30 ml STAT ONCE PO 10/29/17 12:00 10/29/17 12:01 A/P Problem List: (1) DJD (degenerative joint disease) of knee ICD Code: M17.10 - Unilateral primary osteoarthritis, unspecified knee Plan: Status post right total knee arthroplasty. Continue pain control. The patient currently on morphine SWEET PICKLED FRUIT MAKER. Continue MiraLAX 17 minutes p.o. twice daily to prevent constipation. / the patient is complaining of constipation. Has not had a bowel movement yet. Discussed the case with the RN and the patient has been administered MiraLAX today. I will order a Dulcolax suppository. (2) HTN (hypertension) ICD Code: I10 - Essential (primary) hypertension Plan: Patient's blood pressure is elevated into the systolics 150-160s. Continue home antihypertensive medications. The patient is currently on metoprolol tartrate 25 mg p.o. twice daily. Blood pressure elevated likely secondary to pain. Continue pain control. We will add clonidine 0.1 mg p.o. every 8 hours as needed for systolic blood pressure more than 160. 4/5 BP stable. Continue metoprolol and clonidine as needed. (3) DEREK (obstructive sleep apnea) ICD Code: G47.33 - Obstructive sleep apnea (adult) (pediatric) Plan: On BiPAP at night. Seems stable. (4) Hyperlipidemia ICD Code: E78.5 - Hyperlipidemia, unspecified Plan: Currently on a statin. Check fasting lipid profile. Seems to be diet controlled with a total cholesterol of 110 and an LDL cholesterol 45. (5) Atrial fibrillation ICD Code: I48.91 - Unspecified atrial fibrillation Plan: On apixaban. Telemetry. (6) Bipolar disorder ICD Code: F31.9 - Bipolar disorder, unspecified Plan: Seems to be stable. Continue Cymbalta, Abilify, Xanax. Assessment and Plan GI prophylaxis: PPI. DVT prophylaxis: SCDs, chemoprophylaxis as per orthopedic surgery. Discharge Planning Clear to be discharged by hospitalist after the patient has a bowel movement. Problem Qualifiers (1) DJD (degenerative joint disease) of knee: Qualified Codes: M17.11 - Unilateral primary osteoarthritis, right knee (2) HTN (hypertension): Qualified Codes: I10 - Essential (primary) hypertension (3) Hyperlipidemia: Qualified Codes: E78.5 - Hyperlipidemia, unspecified (4) Bipolar disorder: Qualified Codes: F31.9 - Bipolar disorder, unspecified Juice Arriaga MD Oct 29, 2017 12:01
== END 2017-10-29 14:43 | disposition home health service (06) | DRG 470 ==
LOC: HSDI 05:35 → N06A 11:27
PROVIDERS: ADMIT Orthopaedic Surgery; ATTEND Orthopaedic Surgery
PROC: 3E0T3BZ Introduction of Anesthetic Agent into Peripheral Nerves and Plexi, Percutaneous Approach (ICD-10-PCS; 2017-10-27)
PROC: 0SRC0J9 Replacement of Right Knee Joint with Synthetic Substitute, Cemented, Open Approach (ICD-10-PCS; principal; 2017-10-27 06:49)
DX: M17.11 Unilateral primary osteoarthritis, right knee (principal); I48.91 Unspecified atrial fibrillation; I10 Essential (primary) hypertension; F31.9 Bipolar disorder, unspecified; N39.3 Stress incontinence (female) (male); Z96.643 Presence of artificial hip joint, bilateral; F41.9 Anxiety disorder, unspecified; I25.10 Atherosclerotic heart disease of native coronary artery without angina pectoris; E78.5 Hyperlipidemia, unspecified; F17.290 Nicotine dependence, other tobacco product, uncomplicated; G47.33 Obstructive sleep apnea (adult) (pediatric); M22.41 Chondromalacia patellae, right knee; K59.00 Constipation, unspecified; Z79.01 Long term (current) use of anticoagulants; Z98.1 Arthrodesis status
CPT/HCPCS: 73560; 80048; 80061; 85014; 85018; 85027; 86850; 86900; 86901; 88305; 94150; 94640; 94664; C1776; J0131; J0690; J1100; J1170; J1885; J2175; J2250; J2405; J2710; J3010; J7120; J7644; L1830